=== PATIENT | female | born 1975 | race Caucasian/White ===

== ENCOUNTER 2017-02-21 11:16 | Observation (INO) | payer MEDICAID ==
[~2017-02-21] VITALS: Ht 139.7 cm; Wt 49.2 kg
[2017-02-21 12:47] LABS: EOSINOPHILS % 1.1 % (0.0-5.0); HEMATOCRIT. 37.1 % (36.0-48.0); HEMOGLOBIN. 12.4 g/dL (12.0-16.0); LYMPHOCYTES % 35.6 % (20.0-50.0); MEAN CORPUSCULAR HEMOGLOBIN 29.3 pg (28.0-32.0); MEAN CORPUSCULAR HGB CONC 33.5 g/dL (31.0-37.0); MEAN CORPUSCULAR VOLUME 87.3 fL (81.0-99.0); MEAN PLATELET VOLUME 7.8 fl (7.4-10.4); MONOCYTES % 12.1 % (2.0-8.0); NEUTROPHILS % 50.2 % (40.0-76.0); PLATELET 222 x1000/uL (130-400); RED BLOOD CELL COUNT 4.25 mill/uL (4.2-5.4); RED CELL DISTRIBUTION WIDTH 14.9 % (11.6-14.6); WHITE BLOOD COUNT 5.2 x1000/uL (4.5-11.0)
[2017-02-21 13:00] LABS: ALANINE AMINOTRANSFERASE 26 IU/L (13-61); ANION GAP 11; CALCIUM 8.5 mg/dL (8.5-10.1); CARBON DIOXIDE 28 mEq/L (21-32); CHLORIDE 107 mEq/L (98-107); INDEX HEMOLYSI 1 (1-3); INDEX ICTERIC 1 (1-4); INDEX LIPEMIC 1 (1-3); UREA NITROGEN BLOOD 10 mg/dL (7-21)
[2017-02-21 13:04] LABS: TROPONIN I < 0.02 ng/mL (0.00-0.04); eGFR > 60 mL/min (>60)
[2017-02-21 13:08] LABS: HCG SCREEN NEGATIVE
[2017-02-21] MEDS ORDERED: SODIUM CHLORIDE 0.9% 500 ML IV ONE (13:25)
[2017-02-21] MEDS ORDERED: MORPHINE SULFATE 4 MG/ML CPJ (NOT FOR IM USE) IV ONE (14:00)
[2017-02-21] MEDS ORDERED: ONDANSETRON HCL 4MG/2ML VIAL IV ONE (14:00)
[2017-02-21] MEDS ORDERED: ASPIRIN 325MG EC TABLET PO ONE (14:30)
[2017-02-21 16:07] VITALS: BP 124/81
[2017-02-21 16:15] VITALS: BP 124/81
[2017-02-21] MEDS ORDERED: ONDANSETRON HCL 4MG/2ML VIAL IV PRN (19:00)
[2017-02-21] MEDS ORDERED: DOCUSATE SODIUM 100MG CAPSULE PO PRN (19:00)
[2017-02-21 20:00] VITALS: BP 122/73
[2017-02-21] MEDS: ACETAMINOPHEN 325MG TABLET PO PRN (22:27)
[2017-02-21] MEDS: OMEPRAZOLE 20MG CAPSULE EXTENDED RELEASE PO SCH (22:27)
[2017-02-21] MEDS: SODIUM CHLORIDE 0.9% 1,000 ML IV SCH (22:28)
[2017-02-22] VITALS: BP 109/50
[2017-02-22 02:56] LABS: *AMPHETAMINES SCREEN URINE NEGATIVE (NEGATIVE); *BARBITURATES SCREEN URINE NEGATIVE (NEGATIVE); *BENZODIAZEPINES SCREEN URINE NEGATIVE (NEGATIVE); *COCAINE SCREEN URINE NEGATIVE (NEGATIVE); CANNABINOID URINE SCREEN NEGATIVE (NEGATIVE); ECSTASY MDMA SCREEN URINE NEGATIVE (NEGATIVE); METHADONE URINE SCREEN NEGATIVE (NEGATIVE); OPIATES URINE SCREEN NEGATIVE (NEGATIVE); PHENCYCLIDINE URINE SCREEN NEGATIVE (NEGATIVE)
[2017-02-22 04:00] VITALS: BP 90/63
[2017-02-22 06:18] LABS: EOSINOPHILS % 1.9 % (0.0-5.0); HEMATOCRIT. 35.2 % (36.0-48.0); HEMOGLOBIN. 11.8 g/dL (12.0-16.0); LYMPHOCYTES % 42.4 % (20.0-50.0); MEAN CORPUSCULAR HEMOGLOBIN 29.2 pg (28.0-32.0); MEAN CORPUSCULAR HGB CONC 33.7 g/dL (31.0-37.0); MEAN CORPUSCULAR VOLUME 86.7 fL (81.0-99.0); MEAN PLATELET VOLUME 8.7 fl (7.4-10.4); MONOCYTES % 14.6 % (2.0-8.0); NEUTROPHILS % 40.1 % (40.0-76.0); PLATELET 224 x1000/uL (130-400); RED BLOOD CELL COUNT 4.06 mill/uL (4.2-5.4); RED CELL DISTRIBUTION WIDTH 15.2 % (11.6-14.6); WHITE BLOOD COUNT 5.6 x1000/uL (4.5-11.0)
[2017-02-22 06:42] LABS: ANION GAP 12; CALCIUM 8.2 mg/dL (8.5-10.1); CARBON DIOXIDE 26 mEq/L (21-32); CHLORIDE 110 mEq/L (98-107); INDEX HEMOLYSI 1 (1-3); INDEX ICTERIC 1 (1-4); INDEX LIPEMIC 1 (1-3); UREA NITROGEN BLOOD 11 mg/dL (7-21)
[2017-02-22 06:54] LABS: HDL CHOLESTEROL 51 mg/dL (40-59); LDL CHOLESTEROL 104 mg/dL (5-100); TRIGLYCERIDE 98 mg/dL (0-150); eGFR > 60 mL/min (>60)
[2017-02-22] MEDS: OMEPRAZOLE 20MG CAPSULE EXTENDED RELEASE PO SCH (07:55)
[2017-02-22 08:00] VITALS: BP 106/57
[2017-02-22] MEDS: ACETAMINOPHEN 325MG TABLET PO PRN (10:19)
[2017-02-22] MEDS: SODIUM CHLORIDE 0.9% 1,000 ML IV SCH (11:31)
[2017-02-22 12:00] VITALS: BP 115/64
[2017-02-22 13:24] VITALS: BP 110/60
[2017-02-22 15:41] VITALS: BP 95/50
[2017-02-23 08:00] VITALS: BP 142/80
== END 2017-02-22 15:45 | disposition home or self-care (01) ==
LOC: ER 11:47 → 7WST 14:09 → INTOOBSV 14:09
PROVIDERS: ADMIT Family Medicine Adult Medicine; ATTEND Family Medicine Adult Medicine
DX: G43.109 Migraine with aura, not intractable, without status migrainosus (principal); R53.1 Weakness; F32.9 Major depressive disorder, single episode, unspecified; F41.9 Anxiety disorder, unspecified; R20.0 Anesthesia of skin; F43.9 Reaction to severe stress, unspecified; I63.9 Cerebral infarction, unspecified; R11.0 Nausea; Z82.0 Family history of epilepsy and other diseases of the nervous system
CPT/HCPCS: 36415; 70450; 70544; 70551; 72125; 72141; 80048; 80053; 80061; 80305; 81025; 83735; 84443; 84484; 84703; 85025; 93005; 93880; 96360; 96361; 99291; G0378; J7030; J2270; J2405